=== PATIENT | male | born 1950 | race American Indian/Alaskan Native ===

== ENCOUNTER 2016-11-07 09:46 | Emergency (ER) | payer MEDICARE ==
[2016-11-07 10:35] LABS: Hematocrit 35.2 % (35.5-45.6); Hemoglobin 11.9 gm/dl (11.8-15.2); Mean Corpuscular HGB Conc 34 % (32-34); Mean Corpuscular Hemoglobin 29 pg (28-32); Mean Corpuscular Volume 84 fl (84-94); Platelet Count 279 K/mm3 (140-440); Red Blood Count 4.19 M/mm3 (3.65-5.03); Red Cell Distribution Width 15.7 % (13.2-15.2)
[2016-11-07 10:51] LABS: BUN/Creatinine Ratio 6.87; Calcium 9.3 mg/dL (8.4-10.2); Chloride 103.6 mmol/L (98-107); Magnesium 1.7 mg/dL (1.7-2.3); Potassium 4.1 mmol/L (3.6-5.0)
[2016-11-07] MEDS ORDERED: CATAPRES PO ONE (17:20)
[2016-11-07] MEDS ORDERED: FIORICET PO ONE (17:20)
--- NOTE | 2016-11-07 17:47 | Emergency Department Report ---
HPI - General Chief Complaint: Dizziness Time Seen by Provider: 11/07/16 17:13 - HPI HPI: Room 6 The patient is a 66-year-old male presenting with a chief complaint of headache and dizziness. Patient is currently at [facility] for alcohol abuse. The patient states today and was told by the nurses blood pressure was elevated and sent to the ED for management. The patient states for 1 weeks his had intermittent dizziness and headache. The patient currently denies dizziness but states she has a headache as a score of 10/10. The patient also admits to insomnia for the past 4 nights Location: See above Duration: [see above] Quality: Headache Severity: 10/10 Modifying factors: [see above] Context: [see above] Mode of transportation: [not driving]t ED Past Medical Hx - Past Medical History Hx Hypertension: Yes Additional medical history: ENLARGED PROSTATE. HIGH CHOLESTEROL. ALCOHOL ABUSE - Surgical History Additional Surgical History: COLON POLYPS REMOVED ? - Family History Family history: no significant - Social History Smoking Status: Current Every Day Smoker Substance Use Type: None - Medications Home Medications: Home Medications Medication Instructions Recorded Confirmed Last Taken Type Hydralazine HCl [Apresoline TAB] 50 mg PO Q6H 11/07/16 11/07/16 Unknown History Mirtazapine [Remeron] 15 mg PO QHS 11/07/16 11/07/16 Unknown History Pravastatin Sodium [Pravastatin] 20 mg PO QHS 11/07/16 11/07/16 Unknown History Tamsulosin [Flomax] 0.4 mg PO QDAY 11/07/16 11/07/16 Unknown History amLODIPine [Norvasc] 5 mg PO DAILY #90 tab 11/07/16 Unknown Rx ED Review of Systems ROS: Stated complaint: ELEVATED BP Other details as noted in HPI Comment: All other systems reviewed and negative Constitutional: denies: chills, fever Eyes: denies: eye pain, eye discharge, vision change ENT: denies: ear pain, throat pain Respiratory: denies: cough, shortness of breath, wheezing Cardiovascular: denies: chest pain, palpitations Endocrine: no symptoms reported Gastrointestinal: denies: abdominal pain, nausea, diarrhea Genitourinary: denies: urgency, dysuria Musculoskeletal: denies: back pain, joint swelling, arthralgia Skin: denies: rash, lesions Neurological: headache Psychiatric: denies: anxiety, depression Hematological/Lymphatic: denies: easy bleeding, easy bruising Physical Exam - Physical Exam Vital Signs: Vital Signs 11/07/16 11/07/16 11/07/16 09:53 15:57 16:05 Temperature 98.2 F 97.7 F Pulse Rate 89 86 82 Respiratory 17 18 12 Rate Blood Pressure 159/99 Blood Pressure 180/110 178/102 [Left] O2 Sat by Pulse 100 99 99 Oximetry 11/07/16 16:06 Temperature Pulse Rate Respiratory 12 Rate Blood Pressure Blood Pressure [Left] O2 Sat by Pulse 99 Oximetry Physical Exam: GENERAL: The patient is well-developed well-nourished male lying on stretcher not appearing to be in acute distress. [] HEENT: Normocephalic. Atraumatic. Extraocular motions are intact. Patient has moist mucous membranes. NECK: Supple. No meningitic signs are noted. Trachea midline CHEST/LUNGS: Clear to auscultation. There is no respiratory distress noted. HEART/CARDIOVASCULAR: Regular. There is no tachycardia. There is no gallop rub or murmur. ABDOMEN: Abdomen is soft, nontender. Patient has normal bowel sounds. There is no abdominal distention. SKIN: There is no rash. There is no edema. There is no diaphoresis. NEURO: The patient is awake, alert, and oriented. The patient is cooperative. The patient has no focal neurologic deficits. The patient has normal speech. Cranial nerves II through XII grossly intact, no drift MUSCULOSKELETAL: There is no evidence of acute injury. ED Course Vital Signs 11/07/16 11/07/16 11/07/16 09:53 15:57 16:05 Temperature 98.2 F 97.7 F Pulse Rate 89 86 82 Respiratory 17 18 12 Rate Blood Pressure 159/99 Blood Pressure 180/110 178/102 [Left] O2 Sat by Pulse 100 99 99 Oximetry 11/07/16 16:06 Temperature Pulse Rate Respiratory 12 Rate Blood Pressure Blood Pressure [Left] O2 Sat by Pulse 99 Oximetry ED Medical Decision Making - Lab Data Result diagrams: 11/07/16 10:21 11/07/16 10:21 Laboratory Tests 11/07/16 11/07/16 10:21 10:21 WBC 8.0 RBC 4.19 Hgb 11.9 Hct 35.2 L MCV 84 MCH 29 MCHC 34 RDW 15.7 H Plt Count 279 Sodium 137 Potassium 4.1 Chloride 103.6 Carbon Dioxide 23 Anion Gap 15 BUN 11 Creatinine 1.6 H Estimated GFR 43 BUN/Creatinine Ratio 6.87 Glucose 100 Calcium 9.3 Magnesium 1.7 - Radiology Data Radiology results: report reviewed (CT head), image reviewed (CT head) interpreted by me: CT head (read by radiologist)-acute intracranial abnormality. 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 ED Disposition Clinical Impression: Hypertension, Headache Disposition: DC/TX PSY HOSP/PSY UNIT Is pt being admited?: No Does the pt Need Aspirin: No Condition: Stable Instructions: Hypertension (ED) Additional Instructions: Return to the emergency department immediately should you develop worsening symptoms, fever, inability to tolerate food or liquid or any other concerns. Prescriptions: amLODIPine [Norvasc] 5 mg PO DAILY #90 tab Referrals: PRIMARY CAREMD [Primary Care Provider] - 3-5 Days GLO MARTINEZ MD [Staff Physician] - 3-5 Days Time of Disposition: 19:25
--- NOTE | 2016-11-07 18:25 | Cat Scan Report ---
FINAL REPORT EXAM: CT HEAD/BRAIN WO CON HISTORY: hypertension, headache TECHNIQUE: CT imaging is acquired through the brain without contrast. Transaxial reformations are provided. PRIORS: None. FINDINGS: Ventricles and CSF spaces are proportionately enlarged, consistent with parenchymal atrophy. Scattered deep and subcortical white matter hypodense foci are confluent in some areas and are compatible with microvascular angiopathy. No acute intracranial hemorrhage or mass effect. Calvarium and superficial scalp are intact. No significant abnormality involving the imaged portions of the paranasal sinuses or mastoid air cells. Carotid and vertebral arterial calcifications are noted. IMPRESSION: No acute intracranial abnormality. 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
[2016-11-07 19:31] VITALS: BP 157/100
== END 2016-11-07 19:30 ==
LOC: ED 09:46
DX: I10 Essential (primary) hypertension (principal); R51 Headache; F17.200 Nicotine dependence, unspecified, uncomplicated
CPT/HCPCS: 36415; 70450; 80048; 83735; 85027; 93005; 93010; 99285

== ENCOUNTER 2017-06-19 15:30 | Emergency (ER) | payer MEDICARE ==
[2017-06-19 16:44] VITALS: BP 167/102
[2017-06-19 17:16] LABS: Basophils % (Auto) 1.2 % (0.0-1.8); Eosinophils % (Auto) 1.8 % (0.0-4.3); Hematocrit 35.9 % (35.5-45.6); Hemoglobin 11.9 gm/dl (11.8-15.2); Mean Corpuscular HGB Conc 33 % (32-34); Mean Corpuscular Hemoglobin 27 pg (28-32); Mean Corpuscular Volume 80 fl (84-94); Platelet Count 279 K/mm3 (140-440); Red Blood Count 4.47 M/mm3 (3.65-5.03); Red Cell Distribution Width 14.9 % (13.2-15.2); White Blood Count 9.8 K/mm3 (4.5-11.0)
[2017-06-19 17:31] LABS: Calcium 9.5 mg/dL (8.4-10.2)
[2017-06-19 17:56] LABS: Bilirubin,Urine NEG (Negative); Blood,Urine NEG (Negative); Ketones,Urine NEG (Negative); Leukocyte Esterase,Urine NEG (Negative); Mucus,Urine FEW /HPF; Nitrite,Urine NEG (Negative); Protein,Urine <15 mg/dL mg/dL (Negative); Urobilinogen,Urine < 2.0 mg/dL (<2.0)
--- NOTE | 2017-06-19 21:46 | Emergency Department Report ---
ED Alcohol HPI - General Chief Complaint: Alcohol Stated Complaint: MEDICAL CLEARANCE Time Seen by Provider: 06/19/17 21:36 Source: patient Mode of arrival: Ambulatory Limitations: No Limitations - History of Present Illness Initial Comments: Mr. Wilson is a 67 years old male family today for alcohol detox and rehabilitation. Patient stated that last time he drank was 2 months ago but it' s always on his mind and he is afraid that he might start drinking again. Patient Last alcohol detox was 6 months ago. He stated that he feel depressed but denied any suicidal ideation or homicidal ideation no visual or auditory hallucination. MD Complaint: desires rehab, medical clearance for det Chronic Alcohol Use: Yes Previous Visits for Alcohol Intoxication?: Yes (6 month) Recent Trauma: No Associated Symptoms: depression. denies: nausea, vomiting, syncope, seizure, diaphoresis, tremors, abdominal pain, hematemesis, melena, suicidality - Related Data Home Medications Medication Instructions Recorded Confirmed Last Taken Hydralazine HCl [Apresoline TAB] 50 mg PO Q6H 11/07/16 06/19/17 Unknown Mirtazapine [Remeron] 15 mg PO QHS 11/07/16 06/19/17 Unknown Pravastatin Sodium [Pravastatin] 20 mg PO QHS 11/07/16 06/19/17 Unknown Tamsulosin [Flomax] 0.4 mg PO QDAY 11/07/16 06/19/17 Unknown Previous Rx's Medication Instructions Recorded Last Taken Type amLODIPine [Norvasc] 5 mg PO DAILY #90 tab 11/07/16 Unknown Rx Allergies Allergy/AdvReac Type Severity Reaction Status Date / Time No Known Allergies Allergy Unverified 11/07/16 10:04 ED Review of Systems ROS: Stated complaint: MEDICAL CLEARANCE Other details as noted in HPI Comment: All other systems reviewed and negative Constitutional: denies: chills, fever Respiratory: denies: cough, orthopnea, shortness of breath, SOB with exertion, SOB at rest, wheezing Cardiovascular: denies: chest pain, palpitations, dyspnea on exertion, orthopnea Gastrointestinal: denies: abdominal pain, nausea, vomiting, diarrhea, constipation, hematemesis, melena, hematochezia Musculoskeletal: denies: back pain Skin: denies: rash Neurological: denies: headache, weakness, numbness, paresthesias Psychiatric: depression. denies: auditory hallucinations, visual hallucinations , homicidal thoughts, suicidal thoughts ED Past Medical Hx - Past Medical History Previous Medical History?: Yes Hx Hypertension: Yes Hx Psychiatric Treatment: Yes (ETOH abuse and tx @ [place]) Additional medical history: ENLARGED PROSTATE. HIGH CHOLESTEROL. ALCOHOL ABUSE - Surgical History Past Surgical History?: Yes Additional Surgical History: COLON POLYPS REMOVED , Partial colon removed - Social History Smoking Status: Current Every Day Smoker Substance Use Type: Alcohol, Prescribed - Medications Home Medications: Home Medications Medication Instructions Recorded Confirmed Last Taken Type Hydralazine HCl [Apresoline TAB] 50 mg PO Q6H 11/07/16 06/19/17 Unknown History Mirtazapine [Remeron] 15 mg PO QHS 11/07/16 06/19/17 Unknown History Pravastatin Sodium [Pravastatin] 20 mg PO QHS 11/07/16 06/19/17 Unknown History Tamsulosin [Flomax] 0.4 mg PO QDAY 11/07/16 06/19/17 Unknown History amLODIPine [Norvasc] 5 mg PO DAILY #90 tab 11/07/16 06/19/17 Unknown Rx ED Physical Exam - General Limitations: No Limitations General appearance: alert, in no apparent distress - Head Head exam: Present: atraumatic, normocephalic - Eye Eye exam: Present: normal appearance, PERRL - ENT ENT exam: Present: normal exam, normal orophraynx, mucous membranes moist. Absent: mucous membranes dry - Neck Neck exam: Present: normal inspection. Absent: tenderness, meningismus - Respiratory Respiratory exam: Present: normal lung sounds bilaterally. Absent: respiratory distress, wheezes, rales, rhonchi, accessory muscle use, decreased breath sounds , prolonged expiratory - Cardiovascular Cardiovascular Exam: Present: regular rate, normal rhythm, normal heart sounds - GI/Abdominal GI/Abdominal exam: Present: soft, normal bowel sounds. Absent: distended, tenderness, guarding, rebound, rigid, hyperactive bowel sounds, hypoactive bowel sounds, organomegaly, mass, bruit, pulsatile mass, hernia - Extremities Exam Extremities exam: Present: normal inspection, full ROM - Back Exam Back exam: Present: normal inspection. Absent: tenderness, CVA tenderness (R), CVA tenderness (L) - Neurological Exam Neurological exam: Present: alert, oriented X3, CN II-XII intact, normal gait - Psychiatric Psychiatric exam: Present: depressed. Absent: agitated, anxious, flat affect, manic, homicidal ideation, suicidal ideation - Skin Skin exam: Present: warm, intact, normal color ED Course Vital Signs 06/19/17 16:40 Temperature 98.8 F Pulse Rate 82 Respiratory 18 Rate Blood Pressure 167/102 O2 Sat by Pulse 99 Oximetry ED Medical Decision Making - Lab Data Result diagrams: 06/19/17 16:55 06/19/17 16:55 - Medical Decision Making Patient has been assessed by mental health. They recommend outpatient rehabilitation since patient he just came out of inpatient rehabilitation. Patient agreed to the plan, I will discharge him home. Critical care attestation.: If time is entered above; I have spent that time in minutes in the direct care of this critically ill patient, excluding procedure time. ED Disposition Clinical Impression: Alcohol abuse Disposition: DC-01 TO HOME OR SELFCARE Is pt being admited?: No Condition: Stable Instructions: Abuse of Alcohol (ED) Referrals: PRIMARY CARE, [Primary Care Provider] - 3-5 Days
== END 2017-06-20 00:30 | disposition home or self-care (01) ==
LOC: ED 15:30
DX: F10.129 Alcohol abuse with intoxication, unspecified (principal); I10 Essential (primary) hypertension; F17.200 Nicotine dependence, unspecified, uncomplicated
CPT/HCPCS: 36415; 80048; 81001; 85025; 99284; G0480; 80320

== ENCOUNTER 2017-06-21 21:46 | Emergency (ER) | payer MEDICARE ==
[2017-06-21 22:50] VITALS: BP 157/109
== END 2017-06-22 02:09 | disposition left against medical advice (07) ==
LOC: ED 21:46
DX: Z00.8 Encounter for other general examination (principal); Z53.21 Procedure and treatment not carried out due to patient leaving prior to being seen by health care provider

== ENCOUNTER 2017-06-25 10:36 | Inpatient (IN) | payer MEDICARE ==
--- NOTE | 2017-06-25 10:55 | Emergency Department Report ---
Chief Complaint: Psych Stated Complaint: SUICIDAL Time Seen by Provider: 06/25/17 10:53 - HPI History of Present Illness: 67-year-old male with a history of mental illness presents to the ED complaining wanted to be here anymore. Patient states he does not have a plan but he feels like he might hurt himself. Denies fever, drug use, alcohol use, chest pain, shortness of breath, HI - ROS Review of Systems: As noted in HPI - Exam Vital Signs: Vital Signs 06/25/17 10:41 Temperature 97.5 F L Pulse Rate 101 H Respiratory 16 Rate Blood Pressure 161/105 O2 Sat by Pulse 98 Oximetry Physical Exam: GENERAL: Alert and oriented x3, no apparent distress, Normal Gait, atraumatic. PSYCHIATRIC: Mood is congruent with affect, denies homicidal ideations but admits suicidal ideation with no plans to carry out. SKIN: Warm and dry, No lesions, No ulceration or induration present. MSE screening note: Focused history and physical exam performed. Due to findings the following was ordered: ED Medical Decision Making - Medical Decision Making Mental protocol ordered patient to be seen by the physician ED Disposition for MSE Condition: Stable
[2017-06-25 11:05] LABS: Basophils % (Auto) 1.1 % (0.0-1.8); Eosinophils % (Auto) 1.3 % (0.0-4.3); Hematocrit 38.4 % (35.5-45.6); Hemoglobin 12.9 gm/dl (11.8-15.2); Mean Corpuscular HGB Conc 34 % (32-34); Mean Corpuscular Hemoglobin 27 pg (28-32); Mean Corpuscular Volume 81 fl (84-94); Platelet Count 309 K/mm3 (140-440); Red Blood Count 4.76 M/mm3 (3.65-5.03); Red Cell Distribution Width 14.4 % (13.2-15.2); White Blood Count 9.6 K/mm3 (4.5-11.0)
[2017-06-25 11:20] LABS: Calcium 9.7 mg/dL (8.4-10.2)
[2017-06-25 11:23] LABS: Potassium 5.8 mmol/L (3.6-5.0)
[2017-06-25 11:38] LABS: Urine Drugs of Abuse Note Disclamer
[2017-06-25] MEDS ORDERED: NACL 0.9% 500 ML 500 ML IV ONE (12:13)
[2017-06-25] MEDS ORDERED: KIONEX PO ONE (12:13)
[2017-06-25 12:18] LABS: Bacteria,Urine 1+ /HPF (Negative); Bilirubin,Urine NEG (Negative); Blood,Urine NEG (Negative); Ketones,Urine NEG (Negative); Leukocyte Esterase,Urine NEG (Negative); Nitrite,Urine NEG (Negative)
--- NOTE | 2017-06-25 13:10 | Emergency Department Report ---
HPI - General Chief Complaint: Psych Time Seen by Provider: 06/25/17 10:53 - HPI HPI: This is a 67 year-old male presents to the emergency department with complaint of depression and suicidal ideations. He says he does have a history of major depression. He also has a history of alcohol abuse and previous alcoholism but says that he has not had any alcoholic drink about 6 months after finishing a detox and rehabilitation program in the [place]. He just got back 1 week ago and tried to go into another program at [facility] but was unable to do so and says that his medications for his hypertension, enlarged prostate and hyperlipidemia are currently at [facility]. He denies any chest pain, fever, headache, vision change, shortness of breath. He denies any hallucinations or homicidal ideations. ED Past Medical Hx - Past Medical History Previous Medical History?: Yes Hx Hypertension: Yes Hx Psychiatric Treatment: Yes (ETOH abuse and tx @ [place]) Additional medical history: ENLARGED PROSTATE. HIGH CHOLESTEROL. ALCOHOL ABUSE - Surgical History Past Surgical History?: Yes Additional Surgical History: COLON POLYPS REMOVED , Partial colon removed - Social History Smoking Status: Current Every Day Smoker Substance Use Type: Alcohol - Medications Home Medications: Home Medications Medication Instructions Recorded Confirmed Last Taken Type Hydralazine HCl [Apresoline TAB] 50 mg PO Q6H 11/07/16 06/19/17 Unknown History Mirtazapine [Remeron] 15 mg PO QHS 11/07/16 06/19/17 Unknown History Pravastatin Sodium [Pravastatin] 20 mg PO QHS 11/07/16 06/19/17 Unknown History Tamsulosin [Flomax] 0.4 mg PO QDAY 11/07/16 06/19/17 Unknown History amLODIPine [Norvasc] 5 mg PO DAILY #90 tab 11/07/16 06/19/17 Unknown Rx ED Review of Systems ROS: Stated complaint: SUICIDAL Other details as noted in HPI Comment: All other systems reviewed and negative Constitutional: denies: chills, fever Eyes: denies: eye pain, eye discharge, vision change ENT: denies: ear pain, throat pain Respiratory: denies: cough, shortness of breath, wheezing Cardiovascular: denies: chest pain, palpitations Gastrointestinal: denies: abdominal pain, nausea, diarrhea Genitourinary: denies: urgency, dysuria Musculoskeletal: denies: back pain, joint swelling, arthralgia Skin: denies: rash, lesions Neurological: denies: headache, weakness, paresthesias Psychiatric: suicidal thoughts. denies: auditory hallucinations, visual hallucinations, homicidal thoughts Physical Exam - Physical Exam Vital Signs: Vital Signs 06/25/17 10:41 Temperature 97.5 F L Pulse Rate 101 H Respiratory 16 Rate Blood Pressure 161/105 O2 Sat by Pulse 98 Oximetry Physical Exam: GENERAL: The patient is well-developed well-nourished. HENT: Normocephalic. Atraumatic. Patient has moist mucous membranes. EYES: Extraocular motions are intact. Pupils equal reactive to light bilaterally. NECK: Supple. Trachea is midline. CHEST/LUNGS: Clear to auscultation. There is no respiratory distress noted. HEART/CARDIOVASCULAR: Regular. There is no tachycardia. There is no gallop rub or murmur. ABDOMEN: Abdomen is soft, nontender. Patient has normal bowel sounds. There is no abdominal distention. SKIN: Skin is warm and dry. NEURO: The patient is awake, alert, and oriented. The patient is cooperative. The patient has no focal neurologic deficits. The patient has normal speech. MUSCULOSKELETAL: There is no tenderness or deformity. There is no limitation range of motion. There is no evidence of acute injury. PSYCH: Patient has a flat affect. ED Course Vital Signs 06/25/17 10:41 Temperature 97.5 F L Pulse Rate 101 H Respiratory 16 Rate Blood Pressure 161/105 O2 Sat by Pulse 98 Oximetry ED Medical Decision Making - Lab Data Result diagrams: 06/25/17 10:51 06/25/17 10:51 - Medical Decision Making 67-year-old male presents with the complaint of suicidal ideations and depression. However during his medical clearance workup, the patient was found to have hyponatremia, hyperkalemia and does not appear to be medically clear for psychiatric placement. For this reason he will be admitted to the hospitalist service. He was given some IV fluid replacement and some Kayexalate. He has been accepted for admission by the hospitalist, Dr. Kc. - Differential Diagnosis bipolar disorder, depression, schizoaffective, substance abuse Critical Care Time: No Critical care attestation.: If time is entered above; I have spent that time in minutes in the direct care of this critically ill patient, excluding procedure time. ED Disposition Clinical Impression: Hyponatremia, Hyperkalemia, Suicidal ideations Depression Qualifiers: Depression Type: unspecified Qualified Code(s): F32.9 - Major depressive disorder, single episode, unspecified Disposition: -09 OP ADMIT IP TO THIS HOSP Is pt being admited?: Yes Condition: Stable Referrals: PRIMARY CARE, [Primary Care Provider] - 3-5 Days Time of Disposition: 13:30
[2017-06-25] MEDS: HEPARIN SUB-Q SCH ×2 (14:54→22:04)
[2017-06-25] MEDS ORDERED: NON-FORMULARY (Pravastatin Sodium [Pravastatin] 20 MG) PO SCH (22:00)
[2017-06-25] MEDS: REMERON PO SCH (22:04)
--- NOTE | 2017-06-26 | History and Physical Report ---
<TOBIN VICTOR - Last Filed: 06/26/17 08:08> History of Present Illness Date of admission: 06/25/17 13:31 Medications and Allergies Allergies Allergy/AdvReac Type Severity Reaction Status Date / Time No Known Allergies Allergy Unverified 11/07/16 10:04 Home Medications Medication Instructions Recorded Confirmed Last Taken Type Hydralazine HCl [Apresoline TAB] 50 mg PO Q6H 11/07/16 06/25/17 Unknown History Mirtazapine [Remeron] 15 mg PO QHS 11/07/16 06/25/17 Unknown History Pravastatin Sodium [Pravastatin] 20 mg PO QHS 11/07/16 06/25/17 Unknown History Tamsulosin [Flomax] 0.4 mg PO QDAY 11/07/16 06/25/17 Unknown History amLODIPine [Norvasc] 5 mg PO DAILY #90 tab 11/07/16 06/25/17 Unknown Rx Active Meds: Active Medications Acetaminophen (Tylenol) 650 mg PO Q4H PRN PRN Reason: Pain MILD(1-3)/Fever >100.5/POLO Amlodipine Besylate (Norvasc) 5 mg PO DAILY [facility] Bisacodyl (Dulcolax) 10 mg NC QDAY PRN PRN Reason: [place] [facility] Famotidine (Pepcid) 20 mg IV DAILY [facility] Heparin Sodium (Porcine) (Heparin) 5,000 unit SUB-Q Q8HR [facility] Last Admin: 06/26/17 05:50 Dose: 5,000 unit Hydromorphone HCl (Dilaudid) 0.5 mg IV Q3H PRN PRN Reason: Pain , Severe (7-10) Sodium Chloride (Nacl 0.9% 1000 Ml) 1,000 mls @ 100 mls/hr IV DIRECT [facility]REA Magnesium Hydroxide (Milk Of Magnesia) 30 ml PO Q4H PRN PRN Reason: Constipation Mirtazapine (Remeron) 15 mg PO QHS [facility] Last Admin: 06/25/17 22:04 Dose: 15 mg Miscellaneous Medication (Hydralazine Hcl [Apresoline Tab]) 50 mg PO Q6H [facility] Ondansetron HCl (Zofran) 4 mg IV Q8H PRN PRN Reason: N/V unrelieved by [facility] Oxycodone/Acetaminophen (Percocet 5/325) 1 tab PO Q6H PRN PRN Reason: Pain, Moderate (4-6) Pneumococcal Polyvalent Vaccine (Pneumovax 23) 0.5 ml IM .ONCE ONE Stop: 06/26/17 12:01 Pravastatin Sodium (Pravachol) 20 mg PO QHS [facility] Last Admin: 06/26/17 00:31 Dose: Not Given Tamsulosin HCl (Flomax) 0.4 mg PO QDAY [facility] Zolpidem Tartrate (Ambien) 5 mg PO QHS PRN PRN Reason: Insomnia Exam - Constitutional Vitals: Temp Pulse Resp BP Pulse Ox 98.8 F 87 18 116/80 96 06/26/17 00:02 06/26/17 00:02 06/26/17 00:02 06/26/17 00:02 06/26/17 00:02 Results - Labs CBC & Chem 7: 06/25/17 10:51 06/25/17 10:51 Labs: Laboratory Last Values WBC 9.6 K/mm3 (4.5-11.0) 06/25/17 10:51 RBC 4.76 M/mm3 (3.65-5.03) 06/25/17 10:51 Hgb 12.9 gm/dl (11.8-15.2) 06/25/17 10:51 Hct 38.4 % (35.5-45.6) 06/25/17 10:51 MCV 81 fl (84-94) L 06/25/17 10:51 MCH 27 pg (28-32) L 06/25/17 10:51 MCHC 34 % (32-34) 06/25/17 10:51 RDW 14.4 % (13.2-15.2) 06/25/17 10:51 Plt Count 309 K/mm3 (140-440) 06/25/17 10:51 Lymph % (Auto) 21.7 % (13.4-35.0) 06/25/17 10:51 [place] % (Auto) 10.9 % (0.0-7.3) H 06/25/17 10:51 Eos % (Auto) 1.3 % (0.0-4.3) 06/25/17 10:51 Baso % (Auto) 1.1 % (0.0-1.8) 06/25/17 10:51 Lymph # 2.1 K/mm3 (1.2-5.4) 06/25/17 10:51 [place] # 1.0 K/mm3 (0.0-0.8) H 06/25/17 10:51 Eos # 0.1 K/mm3 (0.0-0.4) 06/25/17 10:51 Baso # 0.1 K/mm3 (0.0-0.1) 06/25/17 10:51 Seg Neutrophils % 65.0 % (40.0-70.0) 06/25/17 10:51 Seg Neutrophils # 6.2 K/mm3 (1.8-7.7) 06/25/17 10:51 Sodium 126 mmol/L (137-145) L 06/25/17 10:51 Potassium 5.8 mmol/L (3.6-5.0) H 06/25/17 10:51 Chloride 84.0 mmol/L (98-107) L 06/25/17 10:51 Carbon Dioxide 24 mmol/L (22-30) 06/25/17 10:51 Anion Gap 24 mmol/L 06/25/17 10:51 BUN 24 mg/dL (9-20) H 06/25/17 10:51 Creatinine 1.6 mg/dL (0.8-1.5) H 06/25/17 10:51 Estimated GFR 52 ml/min 06/25/17 10:51 BUN/Creatinine Ratio 15 % 06/25/17 10:51 Glucose 108 mg/dL (75-100) H 06/25/17 10:51 Calcium 9.7 mg/dL (8.4-10.2) 06/25/17 10:51 Urine Color Yellow (Yellow) 06/25/17 11:02 Urine Turbidity Clear (Clear) 06/25/17 11:02 Urine pH 5.0 (5.0-7.0) 06/25/17 11:02 Ur Specific [place] 1.017 (1.003-1.030) 06/25/17 11:02 Urine Protein 30 mg/dl mg/dL (Negative) 06/25/17 11:02 Urine Glucose (UA) Neg mg/dL (Negative) 06/25/17 11:02 Urine Ketones Neg mg/dL (Negative) 06/25/17 11:02 Urine Blood Neg (Negative) 06/25/17 11:02 Urine Nitrite Neg (Negative) 06/25/17 11:02 Urine Bilirubin Neg (Negative) 06/25/17 11:02 Urine Urobilinogen 2.0 mg/dL (<2.0) 06/25/17 11:02 Ur Leukocyte Esterase Neg (Negative) 06/25/17 11:02 Urine WBC (Auto) 3.0 /HPF (0.0-6.0) 06/25/17 11:02 Urine RBC (Auto) 3.0 /HPF (0.0-6.0) 06/25/17 11:02 Urine Bacteria (Auto) 1+ /HPF (Negative) 06/25/17 11:02 Urine Opiates Screen Presumptive negative 06/25/17 11:02 Urine Methadone Screen Presumptive negative 06/25/17 11:02 Ur Barbiturates Screen Presumptive negative 06/25/17 11:02 Ur Phencyclidine Scrn Presumptive negative 06/25/17 11:02 Ur Amphetamines Screen Presumptive negative 06/25/17 11:02 U Benzodiazepines Scrn Presumptive negative 06/25/17 11:02 Urine Cocaine Screen Presumptive negative 06/25/17 11:02 U Marijuana (THC) Screen Presumptive negative 06/25/17 11:02 Drugs of Abuse Note Disclamer 06/25/17 11:02 Plasma/Serum Alcohol < 0.01 gm% (0-0.07) 06/25/17 10:51 <KJ POOLE S - Last Filed: 06/26/17 08:53> History of Present Illness Date of examination: 06/25/17 Date of admission: 06/25/17 13:31 Chief complaint: CC Suicidal ideation History of present illness: HPI This is a 67 year-old male presents to the emergency department with complaint of depression and suicidal ideations. He says he does have a history of major depression. He also has a history of alcohol abuse and previous alcoholism but says that he has not had any alcoholic drink about 6 months after finishing a detox and rehabilitation program in the [place]. He just got back 1 week ago and tried to go into another program at [facility] but was unable to do so and says that his medications for his hypertension, enlarged prostate and hyperlipidemia are currently at [facility]. He denies any chest pain, fever, headache, vision change, shortness of breath. He denies any hallucinations or homicidal ideations. - Past Medical History Previous Medical History?: Yes Hx Hypertension: Yes Hx Psychiatric Treatment: Yes (ETOH abuse and tx @ [place]) Additional medical history: ENLARGED PROSTATE. HIGH CHOLESTEROL. ALCOHOL ABUSE - Surgical History Past Surgical History?: Yes Additional Surgical History: COLON POLYPS REMOVED , Partial colon removed - Social History Smoking Status: Current Every Day Smoker Substance Use Type: Alcohol - Medications Home Medications: Home Medications Medication Instructions Recorded Confirmed Last Taken Type Hydralazine HCl [Apresoline TAB] 50 mg PO Q6H 11/07/16 06/19/17 Unknown History Mirtazapine [Remeron] 15 mg PO QHS 11/07/16 06/19/17 Unknown History Pravastatin Sodium [Pravastatin] 20 mg PO QHS 11/07/16 06/19/17 Unknown History Tamsulosin [Flomax] 0.4 mg PO QDAY 11/07/16 06/19/17 Unknown History amLODIPine [Norvasc] 5 mg PO DAILY #90 tab 11/07/16 06/19/17 Unknown Rx Review of Systems ROS: Stated complaint: SUICIDAL Other details as noted in HPI Comment: All other systems reviewed and negative Constitutional: denies: chills, fever Eyes: denies: eye pain, eye discharge, vision change ENT: denies: ear pain, throat pain Respiratory: denies: cough, shortness of breath, wheezing Cardiovascular: denies: chest pain, palpitations Gastrointestinal: denies: abdominal pain, nausea, diarrhea Genitourinary: denies: urgency, dysuria Musculoskeletal: denies: back pain, joint swelling, arthralgia Skin: denies: rash, lesions Neurological: denies: headache, weakness, paresthesias Psychiatric: suicidal thoughts. denies: auditory hallucinations, visual hallucinations, homicidal thoughts Medications and Allergies Active Meds: Active Medications Amlodipine Besylate (Norvasc) 5 mg PO DAILY [facility] Heparin Sodium (Porcine) (Heparin) 5,000 unit SUB-Q Q8HR [facility] Last Admin: 06/25/17 22:04 Dose: 5,000 unit Mirtazapine (Remeron) 15 mg PO QHS [facility] Last Admin: 06/25/17 22:04 Dose: 15 mg Pneumococcal Polyvalent Vaccine (Pneumovax 23) 0.5 ml IM .ONCE ONE Stop: 06/26/17 12:01 Pravastatin Sodium (Pravachol) 20 mg PO QHS [facility] Exam - Constitutional Vitals: Temp Pulse Resp BP Pulse Ox 98.6 F 85 20 123/80 98 06/25/17 17:06 06/25/17 17:06 06/25/17 17:06 06/25/17 17:06 06/25/17 17:06 General appearance: Present: no acute distress, well-nourished - EENT Eyes: Present: PERRL ENT: hearing intact, clear oral mucosa - Neck Neck: Present: supple, normal ROM - Respiratory Respiratory effort: normal Respiratory: bilateral: CTA - Cardiovascular Heart rate: 80 Rhythm: regular Heart Sounds: Present: S1 & S2. Absent: rub, click - Extremities Extremities: no ischemia, pulses intact, pulses symmetrical, No edema Peripheral Pulses: within normal limits - Abdominal General gastrointestinal: Present: soft, non-tender, non-distended, normal bowel sounds Male genitourinary: Present: normal - Rectal Rectal Exam: deferred - Integumentary Integumentary: Present: clear, warm, dry - Musculoskeletal Musculoskeletal: gait normal, strength equal bilaterally - Psychiatric Psychiatric: appropriate mood/affect, intact judgment & insight - Neurologic Neurologic: CNII-XII intact, moves all extremities - Allied Health Allied health notes reviewed: nursing, case management Results - Labs CBC & Chem 7: 06/25/17 10:51 06/25/17 10:51 Labs: Laboratory Last Values WBC 9.6 K/mm3 (4.5-11.0) 06/25/17 10:51 RBC 4.76 M/mm3 (3.65-5.03) 06/25/17 10:51 Hgb 12.9 gm/dl (11.8-15.2) 06/25/17 10:51 Hct 38.4 % (35.5-45.6) 06/25/17 10:51 MCV 81 fl (84-94) L 06/25/17 10:51 MCH 27 pg (28-32) L 06/25/17 10:51 MCHC 34 % (32-34) 06/25/17 10:51 RDW 14.4 % (13.2-15.2) 06/25/17 10:51 Plt Count 309 K/mm3 (140-440) 06/25/17 10:51 Lymph % (Auto) 21.7 % (13.4-35.0) 06/25/17 10:51 [place] % (Auto) 10.9 % (0.0-7.3) H 06/25/17 10:51 Eos % (Auto) 1.3 % (0.0-4.3) 06/25/17 10:51 Baso % (Auto) 1.1 % (0.0-1.8) 06/25/17 10:51 Lymph # 2.1 K/mm3 (1.2-5.4) 06/25/17 10:51 [place] # 1.0 K/mm3 (0.0-0.8) H 06/25/17 10:51 Eos # 0.1 K/mm3 (0.0-0.4) 06/25/17 10:51 Baso # 0.1 K/mm3 (0.0-0.1) 06/25/17 10:51 Seg Neutrophils % 65.0 % (40.0-70.0) 06/25/17 10:51 Seg Neutrophils # 6.2 K/mm3 (1.8-7.7) 06/25/17 10:51 Sodium 126 mmol/L (137-145) L 06/25/17 10:51 Potassium 5.8 mmol/L (3.6-5.0) H 06/25/17 10:51 Chloride 84.0 mmol/L (98-107) L 06/25/17 10:51 Carbon Dioxide 24 mmol/L (22-30) 06/25/17 10:51 Anion Gap 24 mmol/L 06/25/17 10:51 BUN 24 mg/dL (9-20) H 06/25/17 10:51 Creatinine 1.6 mg/dL (0.8-1.5) H 06/25/17 10:51 Estimated GFR 52 ml/min 06/25/17 10:51 BUN/Creatinine Ratio 15 % 06/25/17 10:51 Glucose 108 mg/dL (75-100) H 06/25/17 10:51 Calcium 9.7 mg/dL (8.4-10.2) 06/25/17 10:51 Urine Color Yellow (Yellow) 06/25/17 11:02 Urine Turbidity Clear (Clear) 06/25/17 11:02 Urine pH 5.0 (5.0-7.0) 06/25/17 11:02 Ur Specific [place] 1.017 (1.003-1.030) 06/25/17 11:02 Urine Protein 30 mg/dl mg/dL (Negative) 06/25/17 11:02 Urine Glucose (UA) Neg mg/dL (Negative) 06/25/17 11:02 Urine Ketones Neg mg/dL (Negative) 06/25/17 11:02 Urine Blood Neg (Negative) 06/25/17 11:02 Urine Nitrite Neg (Negative) 06/25/17 11:02 Urine Bilirubin Neg (Negative) 06/25/17 11:02 Urine Urobilinogen 2.0 mg/dL (<2.0) 06/25/17 11:02 Ur Leukocyte Esterase Neg (Negative) 06/25/17 11:02 Urine WBC (Auto) 3.0 /HPF (0.0-6.0) 06/25/17 11:02 Urine RBC (Auto) 3.0 /HPF (0.0-6.0) 06/25/17 11:02 Urine Bacteria (Auto) 1+ /HPF (Negative) 06/25/17 11:02 Urine Opiates Screen Presumptive negative 06/25/17 11:02 Urine Methadone Screen Presumptive negative 06/25/17 11:02 Ur Barbiturates Screen Presumptive negative 06/25/17 11:02 Ur Phencyclidine Scrn Presumptive negative 06/25/17 11:02 Ur Amphetamines Screen Presumptive negative 06/25/17 11:02 U Benzodiazepines Scrn Presumptive negative 06/25/17 11:02 Urine Cocaine Screen Presumptive negative 06/25/17 11:02 U Marijuana (THC) Screen Presumptive negative 06/25/17 11:02 Drugs of Abuse Note Disclamer 06/25/17 11:02 Plasma/Serum Alcohol < 0.01 gm% (0-0.07) 06/25/17 10:51 Short CBC 06/25/17 Range/Units 10:51 WBC 9.6 (4.5-11.0) K/mm3 Hgb 12.9 (11.8-15.2) gm/dl Hct 38.4 (35.5-45.6) % Plt Count 309 (140-440) K/mm3 BMP 06/25/17 10:51 Sodium 126 L Potassium 5.8 H Chloride 84.0 L Carbon Dioxide 24 BUN 24 H Creatinine 1.6 H Glucose 108 H Calcium 9.7 Urine 06/25/17 Range/Units 11:02 Urine Color Yellow (Yellow) Urine pH 5.0 (5.0-7.0) Ur Specific [place] 1.017 (1.003-1.030) Urine Protein 30 mg/dl (Negative) mg/dL Urine Glucose (UA) Neg (Negative) mg/dL Assessment and Plan Advance Directives: Yes (full code) VTE prophylaxis?: Chemical Plan of care discussed with patient/family: Yes - Patient Problems (1) Hyperkalemia Current Visit: Yes Status: Acute Plan to address problem: kayexalate given in ER Also calcium gluconate IV (2) Hyponatremia Current Visit: Yes Status: Chronic Plan to address problem: Sec to etoh abuse.IV NS for now Check Lytes and osmolarity (3) Suicidal ideations Current Visit: Yes Status: Acute Plan to address problem: MH consult placed (4) Alcohol abuse Current Visit: No Status: Chronic Plan to address problem: CIWA protocl initiated to prevent DT's (5) Depression Current Visit: Yes Status: Chronic Qualifiers: Depression Type: other depression Major depression recurrence: M Active/ Remission status: A Major depression episode severity: M Psychotic features : P Trimester: T Qualified Code(s): F32.89 - Other specified depressive episodes (6) HTN (hypertension) Current Visit: Yes Status: Chronic Qualifiers: Hypertension type: essential hypertension Qualified Code(s): I10 - Essential (primary) hypertension Plan to address problem: Cont Amlodipine and Hydralazine (7) BPH (benign prostatic hyperplasia) Current Visit: Yes Status: Chronic Qualifiers: Lower urinary tract symptom presence: symptoms present Lower urinary tract symptom detail: urinary hesitancy Qualified Code(s): N40.1 - Benign prostatic hyperplasia with lower urinary tract symptoms; R39.11 - Hesitancy of micturition ; R39.11 - Hesitancy of micturition Plan to address problem: Cont Flomax (8) HLD (hyperlipidemia) Current Visit: Yes Status: Chronic Qualifiers: Hyperlipidemia type: mixed hyperlipidemia Qualified Code(s): E78.2 - Mixed hyperlipidemia Plan to address problem: Cont pravastatin (9) DVT prophylaxis Current Visit: Yes Status: Acute Plan to address problem: On Lovenox
[2017-06-26] MEDS: PRAVACHOL PO SCH ×2 (00:31→22:49)
[2017-06-26] MEDS ORDERED: MILK OF MAGNESIA PO PRN (01:27)
[2017-06-26] MEDS ORDERED: AMBIEN PO PRN (01:27)
[2017-06-26] MEDS ORDERED: TYLENOL PO PRN (01:27)
[2017-06-26] MEDS ORDERED: PERCOCET 5/325 PO PRN (01:27)
[2017-06-26] MEDS ORDERED: ZOFRAN IV PRN (01:27)
[2017-06-26] MEDS ORDERED: DULCOLAX PR PRN (01:27)
[2017-06-26] MEDS ORDERED: NACL 0.9% 1000 ML 1,000 ML IV SCH (02:00)
[2017-06-26] MEDS: HEPARIN SUB-Q SCH ×3 (05:50→22:50)
--- NOTE | 2017-06-26 08:00 | Progress Note ---
Assessment and Plan Assessment and plan: Assessment and plan: --Suicidal ideation; 1013 status, psych evaluation, supportive care --Hyponatremia; managed with normal saline, mild improvement , closely monitor sodium levels Consider nephrology evaluation if no improvement --Hyperkalemia; treated, we'll check potassium levels today --Acute renal failure; vasomotor nephropathy, gentle IV hydration, monitor renal function, avoid nephrotoxic medications --Hypertension: Resume home antihypertensive, closely monitor --DVT prophylaxis; Lovenox renal dose Disposition; possible transfer to inpatient psych when medically stable pending psych evaluation Continue 1013 status History Interval history: Patient admitted with suicidal ideation, hyponatremia, hyperkalemia, 1013 status Sincerely slightly better, complains of depression and suicidal thoughts Hospitalist Physical - Constitutional Vitals: Temp Pulse Resp BP Pulse Ox 98.8 F 87 18 116/80 96 06/26/17 00:02 06/26/17 00:02 06/26/17 00:02 06/26/17 00:02 06/26/17 00:02 General appearance: Present: no acute distress, well-nourished - EENT Eyes: Present: PERRL, EOM intact - Neck Neck: Present: supple, normal ROM - Respiratory Respiratory effort: normal Respiratory: negative: rales, rhonchi, wheezing - Cardiovascular Rhythm: regular Heart Sounds: Present: S1 & S2 - Extremities Extremities: no ischemia, No edema - Abdominal General gastrointestinal: soft, non-tender, non-distended, normal bowel sounds - Integumentary Integumentary: Present: clear, warm - Psychiatric Psychiatric: appropriate mood/affect, depressed - Neurologic Neurologic: CNII-XII intact, moves all extremities Results - Labs CBC & Chem 7: 06/25/17 10:51 06/26/17 10:39 Labs: Laboratory Last Values WBC 9.6 K/mm3 (4.5-11.0) 06/25/17 10:51 RBC 4.76 M/mm3 (3.65-5.03) 06/25/17 10:51 Hgb 12.9 gm/dl (11.8-15.2) 06/25/17 10:51 Hct 38.4 % (35.5-45.6) 06/25/17 10:51 MCV 81 fl (84-94) L 06/25/17 10:51 MCH 27 pg (28-32) L 06/25/17 10:51 MCHC 34 % (32-34) 06/25/17 10:51 RDW 14.4 % (13.2-15.2) 06/25/17 10:51 Plt Count 309 K/mm3 (140-440) 06/25/17 10:51 Lymph % (Auto) 21.7 % (13.4-35.0) 06/25/17 10:51 [place] % (Auto) 10.9 % (0.0-7.3) H 06/25/17 10:51 Eos % (Auto) 1.3 % (0.0-4.3) 06/25/17 10:51 Baso % (Auto) 1.1 % (0.0-1.8) 06/25/17 10:51 Lymph # 2.1 K/mm3 (1.2-5.4) 06/25/17 10:51 [place] # 1.0 K/mm3 (0.0-0.8) H 06/25/17 10:51 Eos # 0.1 K/mm3 (0.0-0.4) 06/25/17 10:51 Baso # 0.1 K/mm3 (0.0-0.1) 06/25/17 10:51 Seg Neutrophils % 65.0 % (40.0-70.0) 06/25/17 10:51 Seg Neutrophils # 6.2 K/mm3 (1.8-7.7) 06/25/17 10:51 Sodium 126 mmol/L (137-145) L 06/25/17 10:51 Potassium 5.8 mmol/L (3.6-5.0) H 06/25/17 10:51 Chloride 84.0 mmol/L (98-107) L 06/25/17 10:51 Carbon Dioxide 24 mmol/L (22-30) 06/25/17 10:51 Anion Gap 24 mmol/L 06/25/17 10:51 BUN 24 mg/dL (9-20) H 06/25/17 10:51 Creatinine 1.6 mg/dL (0.8-1.5) H 06/25/17 10:51 Estimated GFR 52 ml/min 06/25/17 10:51 BUN/Creatinine Ratio 15 % 06/25/17 10:51 Glucose 108 mg/dL (75-100) H 06/25/17 10:51 Calcium 9.7 mg/dL (8.4-10.2) 06/25/17 10:51 Urine Color Yellow (Yellow) 06/25/17 11:02 Urine Turbidity Clear (Clear) 06/25/17 11:02 Urine pH 5.0 (5.0-7.0) 06/25/17 11:02 Ur Specific [place] 1.017 (1.003-1.030) 06/25/17 11:02 Urine Protein 30 mg/dl mg/dL (Negative) 06/25/17 11:02 Urine Glucose (UA) Neg mg/dL (Negative) 06/25/17 11:02 Urine Ketones Neg mg/dL (Negative) 06/25/17 11:02 Urine Blood Neg (Negative) 06/25/17 11:02 Urine Nitrite Neg (Negative) 06/25/17 11:02 Urine Bilirubin Neg (Negative) 06/25/17 11:02 Urine Urobilinogen 2.0 mg/dL (<2.0) 06/25/17 11:02 Ur Leukocyte Esterase Neg (Negative) 06/25/17 11:02 Urine WBC (Auto) 3.0 /HPF (0.0-6.0) 06/25/17 11:02 Urine RBC (Auto) 3.0 /HPF (0.0-6.0) 06/25/17 11:02 Urine Bacteria (Auto) 1+ /HPF (Negative) 06/25/17 11:02 Urine Opiates Screen Presumptive negative 06/25/17 11:02 Urine Methadone Screen Presumptive negative 06/25/17 11:02 Ur Barbiturates Screen Presumptive negative 06/25/17 11:02 Ur Phencyclidine Scrn Presumptive negative 06/25/17 11:02 Ur Amphetamines Screen Presumptive negative 06/25/17 11:02 U Benzodiazepines Scrn Presumptive negative 06/25/17 11:02 Urine Cocaine Screen Presumptive negative 06/25/17 11:02 U Marijuana (THC) Screen Presumptive negative 06/25/17 11:02 Drugs of Abuse Note Disclamer 06/25/17 11:02 Plasma/Serum Alcohol < 0.01 gm% (0-0.07) 06/25/17 10:51
[2017-06-26] MEDS ORDERED: NON-FORMULARY (Hydralazine Hcl [Apresoline Tab] 50 MG) PO SCH (08:15)
[2017-06-26 08:58] LABS: Anion Gap 18 mmol/L; BUN/Creatinine Ratio 18; Blood Urea Nitrogen 25 mg/dL (9-20); Calcium 8.9 mg/dL (8.4-10.2); Carbon Dioxide 26 mmol/L (22-30); Chloride 91.7 mmol/L (98-107); Glucose 120 mg/dL (75-100); Potassium 3.8 mmol/L (3.6-5.0); Sodium 132 mmol/L (137-145)
[2017-06-26] MEDS: NORVASC PO SCH (09:01)
[2017-06-26] MEDS: FLOMAX PO SCH (09:02)
[2017-06-26] MEDS ORDERED: PEPCID IV SCH ×2 (10:00)
[2017-06-26 11:32] LABS: Chloride 92.6 mmol/L (98-107); Potassium 3.6 mmol/L (3.6-5.0)
[2017-06-26] MEDS ORDERED: PNEUMOVAX 23 IM ONE (12:00)
[2017-06-26] MEDS: APRESOLINE PO SCH ×3 (13:47→23:58)
[2017-06-26] MEDS: PEPCID PO SCH (22:48)
[2017-06-26] MEDS: REMERON PO SCH (22:48)
[2017-06-27] MEDS: HEPARIN SUB-Q SCH ×3 (06:15→22:47)
[2017-06-27] MEDS: APRESOLINE PO SCH ×3 (06:16→17:05)
[2017-06-27 06:51] LABS: Basophils % (Auto) 1.9 % (0.0-1.8); Eosinophils % (Auto) 2.4 % (0.0-4.3); Hematocrit 33.7 % (35.5-45.6); Hemoglobin 11.2 gm/dl (11.8-15.2); Mean Corpuscular HGB Conc 33 % (32-34); Mean Corpuscular Hemoglobin 27 pg (28-32); Mean Corpuscular Volume 80 fl (84-94); Platelet Count 265 K/mm3 (140-440); Red Cell Distribution Width 14.3 % (13.2-15.2); White Blood Count 8.1 K/mm3 (4.5-11.0)
[2017-06-27 07:18] LABS: Albumin 3.9 g/dL (3.9-5); Albumin/Globulin Ratio 1.4 %; Bilirubin,Total 0.3 mg/dL (0.1-1.2); Chloride 96.9 mmol/L (98-107); Potassium 3.7 mmol/L (3.6-5.0); Total Protein 6.6 g/dL (6.3-8.2)
[2017-06-27] MEDS: NORVASC PO SCH (09:52)
[2017-06-27] MEDS: PEPCID PO SCH ×2 (09:53→22:45)
[2017-06-27] MEDS: FLOMAX PO SCH (09:53)
--- NOTE | 2017-06-27 14:52 | Progress Note ---
Assessment and Plan /Suicidal ideation; - cont 1013 status, psych evaluation pending, supportive care /Hyponatremia; managed with normal saline, mild improvement , closely monitor sodium levels /Hyperkalemia; treated, we'll check potassium levels today /Acute renal failure; vasomotor nephropathy, gentle IV hydration, monitor renal function, avoid nephrotoxic medications /Hypertension: Resume home antihypertensive, closely monitor /DVT prophylaxis; Lovenox renal dose Disposition: pending psych evaluation Continue 1013 status medically stable for discharge Hospitalist Physical General appearance: Present: no acute distress, well-nourished - EENT Eyes: Present: PERRL, EOM intact - Neck Neck: Present: supple, normal ROM - Respiratory Respiratory effort: normal Respiratory: negative: rales, rhonchi, wheezing - Cardiovascular Rhythm: regular Heart Sounds: Present: S1 & S2 - Extremities Extremities: no ischemia, No edema - Abdominal General gastrointestinal: soft, non-tender, non-distended, normal bowel sounds - Integumentary Integumentary: Present: clear, warm - Psychiatric Psychiatric: appropriate mood/affect, depressed - Neurologic Neurologic: CNII-XII intact, moves all extremities Subjective Date of service: 06/27/17 Interval history: Patient seen and examined clinically improved, complains of depression and suicidal thoughts Objective - Constitutional Vitals: Vital Signs - 12hr 06/27/17 06/27/17 06/27/17 06:16 08:20 09:52 Temperature 98.6 F Pulse Rate 80 98 H 98 H Respiratory 20 Rate Blood Pressure 120/70 114/67 126/79 O2 Sat by Pulse 99 Oximetry - Labs CBC & Chem 7: 06/27/17 06:21 06/27/17 06:21 Labs: Abnormal lab results 06/27/17 06/27/17 Range/Units 06:21 06:21 Hgb 11.2 L (11.8-15.2) gm/dl Hct 33.7 L (35.5-45.6) % MCV 80 L (84-94) fl MCH 27 L (28-32) pg Lymph % (Auto) 36.6 H (13.4-35.0) % [place] % (Auto) 11.3 H (0.0-7.3) % Baso % (Auto) 1.9 H (0.0-1.8) % [place] # 0.9 H (0.0-0.8) K/mm3 Baso # 0.2 H (0.0-0.1) K/mm3 Sodium 136 L (137-145) mmol/L Chloride 96.9 L (98-107) mmol/L BUN 25 H (9-20) mg/dL
[2017-06-27] MEDS: REMERON PO SCH (22:45)
[2017-06-27] MEDS: PRAVACHOL PO SCH (22:46)
[2017-06-28] MEDS: APRESOLINE PO SCH ×3 (01:04→12:12)
[2017-06-28] MEDS: HEPARIN SUB-Q SCH (06:17)
[2017-06-28] MEDS ORDERED: NACL ONE (09:42)
[2017-06-28] MEDS: PEPCID PO SCH (09:49)
[2017-06-28] MEDS: DILAUDID IV PRN ×2 (09:49→13:13)
[2017-06-28] MEDS: NORVASC PO SCH (09:49)
[2017-06-28 09:52] VITALS: BP 148/74
--- NOTE | 2017-06-28 12:04 | Discharge Summary ---
Providers - Providers Date of Admission: 06/25/17 13:31 Date of discharge: 06/28/17 Attending physician: ROSANA PHELPS 06/26/17 08:54 Consult to Mental Health [CONS] Routine Reason For Exam: Suicidal ideation Place consult to:: freddie Notified:: angelina Phone number called:: [phone] Was contact made?: Yes If yes, spoke with:: jett Time called:: 10:21 Primary care physician: CROSSING FLAGMAN Hospitalization Condition: Stable Hospital course: This is a 67 year-old male presents to the emergency department with complaint of depression and suicidal ideations. He says he does have a history of major depression. He also has a history of alcohol abuse and previous alcoholism but says that he has not had any alcoholic drink about 6 months after finishing a detox and rehabilitation program in the [place]. He just got back 1 week ago and tried to go into another program at [facility] but was unable to do so and says that his medications for his hypertension, enlarged prostate and hyperlipidemia are currently at [facility]. He denies any chest pain, fever, headache, vision change, shortness of breath. He denies any hallucinations or homicidal ideations. Discharge diagnosis and management: /Suicidal ideation; - cont 1013 status, psych evaluation pending, supportive care /Hyponatremia; managed with normal saline, mild improvement , closely monitor sodium levels /Hyperkalemia; treated, we'll check potassium levels today /Acute renal failure; vasomotor nephropathy, gentle IV hydration, monitor renal function, avoid nephrotoxic medications /Hypertension: Resume home antihypertensive, closely monitor /DVT prophylaxis; Lovenox renal dose Disposition: DC/TX-65 PSY HOSP/PSY UNIT Time spent for discharge: 32 minutes Core Measure Documentation - Palliative Care Palliative Care/ Comfort Measures: Not Applicable - Core Measures Any of the following diagnoses?: none Exam - Constitutional Vitals: Temp Pulse Resp BP Pulse Ox 98.4 F 78 18 148/74 100 06/28/17 08:23 06/28/17 09:49 06/28/17 08:23 06/28/17 09:49 06/28/17 08:23 General appearance: Present: no acute distress, well-nourished - EENT Eyes: Present: PERRL ENT: hearing intact, clear oral mucosa - Neck Neck: Present: supple, normal ROM - Respiratory Respiratory effort: normal Respiratory: bilateral: CTA - Cardiovascular Heart Sounds: Present: S1 & S2. Absent: rub, click - Extremities Extremities: pulses symmetrical, No edema Peripheral Pulses: within normal limits - Abdominal General gastrointestinal: Present: soft, non-tender, non-distended, normal bowel sounds Male genitourinary: Present: normal - Integumentary Integumentary: Present: clear, warm, dry - Musculoskeletal Musculoskeletal: gait normal, strength equal bilaterally - Psychiatric Psychiatric: cooperative - Neurologic Neurologic: CNII-XII intact, moves all extremities Plan Activity: advance as tolerated Weight Bearing Status: Weight Bear as Tolerated Diet: low fat, low salt Follow up with: PRIMARY CARE, [Primary Care Provider] - 3-5 Days Prescriptions: Mirtazapine [Remeron] 15 mg PO QHS #30 tablet Pravastatin [Pravachol] 20 mg PO QHS #30 tablet amLODIPine [Norvasc] 5 mg PO DAILY #90 tab Famotidine [Pepcid] 20 mg PO BID #60 tablet hydrALAZINE [Apresoline TAB] 50 mg PO Q6HR #90 tablet Tamsulosin [Flomax] 0.4 mg PO QDAY #30 capsule
--- NOTE | 2017-06-28 16:44 | Consultation ---
History of Present Illness - Reason for Consult Consult date: 06/28/17 Reason for consult: Mental Health Evaluation Requesting physician: JUAN LUIS SMITH - Chief Complaint Chief complaint: "I don't know where to start" - History of Present Psychiatric Illness This is a 67 year-old male presents to the emergency department with complaint of depression and suicidal ideations. Today patient is calm and cooperative during the assessment. He stated that he don't know what to do with his life because he is homeless. He stated having an hx of alcohol abuse, but been sober for several months. He stated that he is afraid he may relapsed and start drinking again if he cannot get adequate detention. He stated that his SI's has been active for several days since he returned from [place] from a rehab service for alcohol addiction. He stated that he returned to [place] without a place to stay. He stated that he started drinking alcohol over 30 years ago for recreational use, but started drinking more frequent after dealing with life stressors. He stated that he feels sad and worthless and want help for his depression. He rate his depression 8/10, with 10 being the worse. He denies HI's and AVH's. He denies sleep disturbance and a poor appetite. He denies recreational drug use. Medications and Allergies Allergies Allergy/AdvReac Type Severity Reaction Status Date / Time No Known Allergies Allergy Unverified 11/07/16 10:04 Home Medications Medication Instructions Recorded Confirmed Last Taken Type Hydralazine HCl [Apresoline TAB] 50 mg PO Q6H 11/07/16 06/25/17 Unknown History Pravastatin Sodium [Pravastatin] 20 mg PO QHS 11/07/16 06/25/17 Unknown History Famotidine [Pepcid] 20 mg PO BID #60 tablet 06/28/17 Unknown Rx Mirtazapine [Remeron] 15 mg PO QHS #30 tablet 06/28/17 Unknown Rx Pravastatin [Pravachol] 20 mg PO QHS #30 tablet 06/28/17 Unknown Rx Tamsulosin [Flomax] 0.4 mg PO QDAY #30 capsule 06/28/17 Unknown Rx amLODIPine [Norvasc] 5 mg PO DAILY #90 tab 06/28/17 Unknown Rx hydrALAZINE [Apresoline TAB] 50 mg PO Q6HR #90 tablet 06/28/17 Unknown Rx Active Meds: Active Medications Acetaminophen (Tylenol) 650 mg PO Q4H PRN PRN Reason: Pain MILD(1-3)/Fever >100.5/POLO Amlodipine Besylate (Norvasc) 5 mg PO DAILY [facility] Last Admin: 06/28/17 09:49 Dose: 5 mg Bisacodyl (Dulcolax) 10 mg FL QDAY PRN PRN Reason: Constipation unrelieved by MOM Famotidine (Pepcid) 20 mg PO BID [facility] Last Admin: 06/28/17 09:49 Dose: 20 mg Heparin Sodium (Porcine) (Heparin) 5,000 unit SUB-Q Q8HR [facility] Last Admin: 06/28/17 06:17 Dose: 5,000 unit Hydralazine HCl (Apresoline) 50 mg PO Q6HR [facility] Last Admin: 06/28/17 12:12 Dose: 50 mg Hydromorphone HCl (Dilaudid) 0.5 mg IV Q3H PRN PRN Reason: Pain , Severe (7-10) Last Admin: 06/28/17 13:13 Dose: 0.5 mg Sodium Chloride (Nacl 0.9% 1000 Ml) 1,000 mls @ 100 mls/hr IV DIRECT [facility] Magnesium Hydroxide (Milk Of Magnesia) 30 ml PO Q4H PRN PRN Reason: Constipation Mirtazapine (Remeron) 15 mg PO QHS [facility] Last Admin: 06/27/17 22:45 Dose: 15 mg Ondansetron HCl (Zofran) 4 mg IV Q8H PRN PRN Reason: N/V unrelieved by Reglan Last Admin: 06/28/17 09:49 Dose: 4 mg Oxycodone/Acetaminophen (Percocet 5/325) 1 tab PO Q6H PRN PRN Reason: Pain, Moderate (4-6) Last Admin: 06/27/17 22:45 Dose: 1 tab Pravastatin Sodium (Pravachol) 20 mg PO QHS [facility] Last Admin: 06/27/17 22:46 Dose: 20 mg Tamsulosin HCl (Flomax) 0.4 mg PO QDAY [facility] Last Admin: 06/27/17 09:53 Dose: 0.4 mg Zolpidem Tartrate (Ambien) 5 mg PO QHS PRN PRN Reason: Insomnia Past psychiatric history - Past Medical History Past Medical History: hypertension, other (Enlarged Prostate) Past Surgical History: No surgical history - past Psychiatric treatment and history Psych: Depression psychiatric treatment history: Outpatient rehab services in the past. - Social History Social history: Lives alone Mental Status Exam - Vital signs Last Vital Signs Temp 98.4 F 06/28/17 08:23 Pulse 72 06/28/17 12:12 Resp 18 06/28/17 08:23 BP 148/74 06/28/17 09:49 Pulse Ox 100 06/28/17 08:23 - Exam Narrative exam: MSE: Appearance: calm, cooperative Behavior: regular eye contact Speech: regular rate and tone Mood: "depressed" Affect: flat Thought Process: circumstantial Thought Content: denies HI's and AVH's Motor Activity: lying in bed Cognition: A/Ox 3 Insight: variable Judgment: variable Results Result Diagrams: 06/27/17 06:21 06/27/17 06:21 All other labs normal. Assessment and Plan Assessment and plan: Impression: MDD. Today patient is calm and cooperative during the assessment. Patient endorses SI's. DDx: R/O Bipolar, Adjustment DO Recommendation/Plan: Continue 1013 with placement to [facility] today. Continue Remeron 15 mg PO HS for depression. Discussed possible suicidality/ medication induced derrick with patient reference Remeron.
== END 2017-06-28 14:00 | DRG 640 ==
LOC: EEVIPCON 10:36 → ED 10:36 → 3A 13:31
PROVIDERS: ADMIT Internal Medicine; ATTEND Internal Medicine
PROC: 3E0234Z Introduction of Serum, Toxoid and Vaccine into Muscle, Percutaneous Approach (ICD-10-PCS; principal; 2017-06-26)
DX: E87.1 Hypo-osmolality and hyponatremia (principal); N17.0 Acute kidney failure with tubular necrosis; R45.851 Suicidal ideations; F32.9 Major depressive disorder, single episode, unspecified; E87.5 Hyperkalemia; I10 Essential (primary) hypertension; N40.0 Benign prostatic hyperplasia without lower urinary tract symptoms; E78.5 Hyperlipidemia, unspecified; Z23 Encounter for immunization; F10.20 Alcohol dependence, uncomplicated; F17.210 Nicotine dependence, cigarettes, uncomplicated; Z86.010 Personal history of colon polyps; E78.00 Pure hypercholesterolemia, unspecified; Z79.899 Other long term (current) drug therapy
CPT/HCPCS: 36415; 80048; 80051; 80053; 80307; 80320; 81001; 83735; 83930; 83935; 85025; 90732; 99285; 99406; G0480; J1170; J1644; J2405; J7040

== ENCOUNTER 2017-09-14 21:42 | Emergency (ER) | payer MEDICARE ==
[2017-09-14] MEDS ORDERED: ASPIRIN PO ONE (22:11)
[2017-09-14] MEDS ORDERED: APRESOLINE ONE (22:16)
[2017-09-14] MEDS ORDERED: NORVASC ONE (22:17)
[2017-09-14] MEDS ORDERED: TYLENOL ONE (22:17)
[2017-09-14] MEDS ORDERED: NORVASC PO ONE (22:21)
[2017-09-14] MEDS ORDERED: TYLENOL PO ONE (22:21)
[2017-09-14] MEDS ORDERED: APRESOLINE PO ONE (22:21)
[2017-09-14 22:42] LABS: Basophils # (Auto) 0.1 K/mm3 (0.0-0.1); Basophils % (Auto) 0.8 % (0.0-1.8); Eosinophils # (Auto) 0.1 K/mm3 (0.0-0.4); Eosinophils % (Auto) 1.1 % (0.0-4.3); Hematocrit 36.8 % (35.5-45.6); Hemoglobin 12.4 gm/dl (11.8-15.2); Lymphocytes # (Auto) 2.3 K/mm3 (1.2-5.4); Mean Corpuscular HGB Conc 34 % (32-34); Mean Corpuscular Hemoglobin 27 pg (28-32); Mean Corpuscular Volume 80 fl (84-94); Monocytes % (Auto) 8.8 % (0.0-7.3); Platelet Count 240 K/mm3 (140-440); Red Cell Distribution Width 14.5 % (13.2-15.2)
[2017-09-14 23:41] LABS: BUN/Creatinine Ratio 11; Blood Urea Nitrogen 14 mg/dL (9-20); Calcium 9.1 mg/dL (8.4-10.2); Hemolysis Index 11
[2017-09-15] MEDS ORDERED: CATAPRES PO ONE (08:35)
[2017-09-15] MEDS ORDERED: NORCO 5/325 PO ONE (08:39)
--- NOTE | 2017-09-15 09:00 | Emergency Department Report ---
ED General Adult HPI - General Chief complaint: High BP Stated complaint: HEADACHE,ELEVATED HIGH BLOOD PRESSURE Time Seen by Provider: 09/15/17 08:25 Source: patient Mode of arrival: Ambulatory Limitations: No Limitations - History of Present Illness Initial comments: Patient with a history of hypertension presents to the emergency department for evaluation of headache and multiple other complaints. He states he had minimal amount of chest pain but was not persistent. He states he is aching all over. He denies any difficulty in speech gait motor or sensory function. His headache is mild and diffuse currently but still persistent. He is out of his blood pressure medicine for several days. He also mentions some right lower quadrant pain in triage that is not complaining of any abdominal pain now. His chief complaint is headache. Whenever abdominal pain he had earlier has resolved. -: Gradual, days(s) Location: head, abdomen Severity scale (0 -10): 4 Quality: aching Consistency: intermittent Improves with: none Worsens with: none Associated Symptoms: denies other symptoms Treatments Prior to Arrival: none - Related Data Previous Rx's Medication Instructions Recorded Last Taken Type Famotidine [Pepcid] 20 mg PO BID #60 tablet 06/28/17 Unknown Rx Mirtazapine [Remeron] 15 mg PO QHS #30 tablet 06/28/17 Unknown Rx Pravastatin [Pravachol] 20 mg PO QHS #30 tablet 06/28/17 Unknown Rx Tamsulosin [Flomax] 0.4 mg PO QDAY #30 capsule 06/28/17 Unknown Rx amLODIPine [Norvasc] 5 mg PO DAILY #90 tab 06/28/17 Unknown Rx hydrALAZINE [Apresoline TAB] 50 mg PO Q6HR #90 tablet 06/28/17 Unknown Rx Hydralazine HCl 50 mg PO BID #60 tablet 09/15/17 Unknown Rx amLODIPine [Norvasc] 5 mg PO DAILY #30 tab 09/15/17 Unknown Rx Allergies Allergy/AdvReac Type Severity Reaction Status Date / Time No Known Allergies Allergy Unverified 11/07/16 10:04 ED Review of Systems ROS: Stated complaint: HEADACHE,ELEVATED HIGH BLOOD PRESSURE Other details as noted in HPI Constitutional: denies: chills, fever Eyes: denies: eye pain, eye discharge, vision change ENT: denies: ear pain, throat pain Respiratory: denies: cough, shortness of breath, wheezing Cardiovascular: denies: chest pain, palpitations Endocrine: no symptoms reported Gastrointestinal: abdominal pain. denies: nausea, diarrhea Genitourinary: denies: urgency, dysuria Musculoskeletal: denies: back pain, joint swelling, arthralgia Skin: denies: rash, lesions Neurological: headache. denies: weakness, numbness, paresthesias, confusion, abnormal gait, vertigo Psychiatric: denies: anxiety, depression Hematological/Lymphatic: denies: easy bleeding, easy bruising ED Past Medical Hx - Past Medical History Hx Hypertension: Yes Hx Psychiatric Treatment: Yes (ETOH abuse and tx @ [place], MAJOR DEPRESSION) Additional medical history: ENLARGED PROSTATE. HIGH CHOLESTEROL. ALCOHOL ABUSE ( LAST DRANK 10/18/2016) - Surgical History Additional Surgical History: COLON POLYPS REMOVED , Partial colon removed - Social History Smoking Status: Current Every Day Smoker Substance Use Type: None - Medications Home Medications: Home Medications Medication Instructions Recorded Confirmed Last Taken Type Famotidine [Pepcid] 20 mg PO BID #60 tablet 06/28/17 09/14/17 Unknown Rx Mirtazapine [Remeron] 15 mg PO QHS #30 tablet 06/28/17 09/14/17 Unknown Rx Pravastatin [Pravachol] 20 mg PO QHS #30 tablet 06/28/17 09/14/17 Unknown Rx Tamsulosin [Flomax] 0.4 mg PO QDAY #30 capsule 06/28/17 09/14/17 Unknown Rx amLODIPine [Norvasc] 5 mg PO DAILY #90 tab 06/28/17 09/14/17 Unknown Rx hydrALAZINE [Apresoline TAB] 50 mg PO Q6HR #90 tablet 06/28/17 09/14/17 Unknown Rx Hydralazine HCl 50 mg PO BID #60 tablet 09/15/17 Unknown Rx amLODIPine [Norvasc] 5 mg PO DAILY #30 tab 09/15/17 Unknown Rx ED Physical Exam - General Limitations: No Limitations General appearance: alert, in no apparent distress - Head Head exam: Present: atraumatic, normocephalic - Eye Eye exam: Present: normal appearance, PERRL, EOMI. Absent: scleral icterus - ENT ENT exam: Present: mucous membranes moist - Neck Neck exam: Present: normal inspection - Respiratory Respiratory exam: Present: normal lung sounds bilaterally. Absent: respiratory distress - Cardiovascular Cardiovascular Exam: Present: regular rate, normal rhythm. Absent: systolic murmur, diastolic murmur, rubs, gallop - GI/Abdominal GI/Abdominal exam: Present: soft, normal bowel sounds. Absent: distended, tenderness, guarding, rebound, rigid - Rectal Rectal exam: Present: deferred - Extremities Exam Extremities exam: Present: normal inspection - Back Exam Back exam: Present: normal inspection - Neurological Exam Neurological exam: Present: alert, oriented X3, CN II-XII intact. Absent: motor sensory deficit - Psychiatric Psychiatric exam: Present: normal mood, flat affect - Skin Skin exam: Present: warm, dry, intact, normal color. Absent: rash ED Course Vital Signs 09/14/17 09/14/17 09/14/17 22:04 22:22 22:23 Temperature 98.5 F Pulse Rate 101 H 101 H Respiratory 18 18 Rate Blood Pressure 182/112 182/112 O2 Sat by Pulse 98 Oximetry - Reevaluation(s) Reevaluation #1: Headache is improved. Patient admits noncompliance with his blood pressure medicine. He states he does have a primary care physician. His blood pressure has returned to a level appropriate for outpatient management. 09/15/17 09:52 09/15/17 09:53 ED Medical Decision Making - Lab Data Result diagrams: 09/14/17 22:14 09/14/17 22:14 Laboratory Results - last 24 hr 09/14/17 09/14/17 09/15/17 22:14 22:14 01:50 WBC 11.5 H RBC 4.60 Hgb 12.4 Hct 36.8 MCV 80 L MCH 27 L MCHC 34 RDW 14.5 Plt Count 240 Lymph % (Auto) 20.0 [place] % (Auto) 8.8 H Eos % (Auto) 1.1 Baso % (Auto) 0.8 Lymph # 2.3 [place] # 1.0 H Eos # 0.1 Baso # 0.1 Seg Neutrophils % 69.3 Seg Neutrophils # 8.0 H Sodium 131 L Potassium 4.0 Chloride 92.0 L Carbon Dioxide 22 Anion Gap 21 BUN 14 Creatinine 1.3 Estimated GFR > 60 BUN/Creatinine Ratio 11 Glucose 142 H Calcium 9.1 Troponin T < 0.010 < 0.010 09/15/17 05:16 WBC RBC Hgb Hct MCV MCH MCHC RDW Plt Count Lymph % (Auto) [place] % (Auto) Eos % (Auto) Baso % (Auto) Lymph # [place] # Eos # Baso # Seg Neutrophils % Seg Neutrophils # Sodium Potassium Chloride Carbon Dioxide Anion Gap BUN Creatinine Estimated GFR BUN/Creatinine Ratio Glucose Calcium Troponin T < 0.010 - Radiology Data Radiology results: report reviewed (no acute intracranial process no change from prior) interpreted by me: Chest x-ray is consistent with COPD and chronic changes Critical care attestation.: If time is entered above; I have spent that time in minutes in the direct care of this critically ill patient, excluding procedure time. ED Disposition Clinical Impression: Uncontrolled hypertension Cephalalgia Qualifiers: Headache type: unspecified Headache chronicity pattern: acute headache Intractability: not intractable Qualified Code(s): R51 - Headache Disposition: DC-01 TO HOME OR SELFCARE Is pt being admited?: No Does the pt Need Aspirin: No Condition: Stable Instructions: Hypertension (ED) Additional Instructions: Return any acute change or problem. Be certain to take her blood pressure medicine. Follow-up with her primary care provider. Prescriptions: amLODIPine [Norvasc] 5 mg PO DAILY #30 tab Hydralazine HCl 50 mg PO BID #60 tablet Referrals: PRIMARY CARE [Primary Care Provider] - 3-5 Days Time of Disposition: 09:55
--- NOTE | 2017-09-15 09:45 | Cat Scan Report ---
CT HEAD WITHOUT CONTRAST: HISTORY: Headache. TECHNIQUE: Sequential CT images without contrast. FINDINGS: Images obtained show bilateral prominence of the sulci and ventricles. There are no abnormal intra- or extra-axial blood or fluid collections. There are no focal masses or evidence of mass effect. The cantrell white matter differentiation appears within normal limits. Regions of periventricular decreased attenuation are consistent with microangiopathic ischemic disease. The posterior fossa structures including the fourth ventricle, cerebellum, and brainstem appear normal. IMPRESSION: Evidence of atrophy and microangiopathic ischemic disease. No acute intracranial process noted. No significant change since 11/07/16.
--- NOTE | 2017-09-15 09:48 | XRay Report ---
AP CHEST: HISTORY: Hypertension No comparison. The lungs are hyperinflated but clear. No pleural effusion or pneumothorax. Normal heart and mediastinal structures. No acute bony abnormality. IMPRESSION: Emphysematous changes.
[2017-09-15 10:05] VITALS: BP 143/98
== END 2017-09-15 10:06 | disposition home or self-care (01) ==
LOC: ED 21:42
DX: I10 Essential (primary) hypertension (principal); F17.200 Nicotine dependence, unspecified, uncomplicated
CPT/HCPCS: 36415; 70450; 71045; 80048; 84484; 85025; 93005; 93010; 99285

== ENCOUNTER 2017-09-16 10:33 | Emergency (ER) | payer MEDICARE ==
[2017-09-16 13:30] LABS: Basophils # (Auto) 0.1 K/mm3 (0.0-0.1); Eosinophils # (Auto) 0.1 K/mm3 (0.0-0.4); Eosinophils % (Auto) 0.7 % (0.0-4.3); Hematocrit 42.6 % (35.5-45.6); Hemoglobin 14.6 gm/dl (11.8-15.2); Lymphocytes # (Auto) 2.1 K/mm3 (1.2-5.4); Lymphocytes % (Auto) 21.4 % (13.4-35.0); Mean Corpuscular HGB Conc 34 % (32-34); Mean Corpuscular Hemoglobin 27 pg (28-32); Mean Corpuscular Volume 80 fl (84-94); Monocytes # (Auto) 1.3 K/mm3 (0.0-0.8); Monocytes % (Auto) 12.8 % (0.0-7.3); Platelet Count 274 K/mm3 (140-440); Red Blood Count 5.35 M/mm3 (3.65-5.03); Red Cell Distribution Width 14.8 % (13.2-15.2)
[2017-09-16 14:30] LABS: Calcium 9.8 mg/dL (8.4-10.2)
[2017-09-16 15:55] LABS: Bacteria,Urine 3+ /HPF (Negative); Bilirubin,Urine NEG (Negative); Blood,Urine NEG (Negative); Color,Urine Yellow (Yellow); Mucus,Urine FEW /HPF; Nitrite,Urine NEG (Negative); Sperm,Urine FEW /HPF (NP)
[2017-09-16 15:59] LABS: Amphetamine Screen,Urine PRESUMPTIVE NEGATIVE; Benzodiazepines Screen,Urine PRESUMPTIVE NEGATIVE; Cannabinoid Screen,Urine PRESUMPTIVE NEGATIVE; Cocaine Screen,Urine PRESUMPTIVE NEGATIVE; Methadone Screen,Urine PRESUMPTIVE NEGATIVE; Opiate Screen,Urine PRESUMPTIVE NEGATIVE
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
--- NOTE | 2017-09-17 09:34 | Cat Scan Report ---
CT ABDOMEN PELVIS WITHOUT CONTRAST: HISTORY: Flank pain, UTI. COMPARISON: none. TECHNIQUE: Helical CT in 1.25mm intervals without IV contrast. Sagittal and coronal reconstructions. FINDINGS: Lung bases: Adequately aerated. Mild emphysematous changes are suspected. Liver: Normal. Biliary system: Normal. Pancreas: Normal. Spleen: Normal. Kidneys/ureters/bladder: The kidneys are normal size, position and attenuation. No focal renal lesion or nephrolithiasis. The ureters are normal course and caliber. There is mild trabeculation of the bladder wall. No bladder filling defect. The prostate gland measures 4.7 cm in diameter. Adrenal glands: Normal. Aorta: Normal. Intestines: Within normal limits given no oral contrast was administered. Surgical suture line in the proximal colon is noted. Appendix: Not clearly identified, correlate with surgical history. Pelvic viscera: Normal. Ascites: None. Adenopathy: None. Musculoskeletal: Moderate to severe thoracolumbar spondylosis. No fracture or suspicious bony lesion. IMPRESSION: No acute process is identified in the abdomen or pelvis. Unremarkable kidneys. Mild trabeculation of the bladder wall. Thoracolumbar spondylosis.
--- NOTE | 2017-09-17 09:45 | Emergency Department Report ---
Blank Doc - Documentation Documentation: The patient was seen by the psychiatric team this morning and brought to my attention that the patient has a urinary tract infection and no antibiotics. He also has some renal insufficiency with a creatinine of 1.8. Previous labs show that the patient has had some transient renal insufficiency in the past as well. Also the patient complained of some flank pain. He does not appear in any acute distress but a CT of the abdomen and pelvis was ordered but did not show any nephrolithiasis or any other acute process. I started him on Macrobid 100 mg twice daily for the urinary tract infection.
[2017-09-17] MEDS ORDERED: MACROBID PO SCH (10:00)
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
[2017-09-17 18:56] VITALS: BP 152/89
[2017-09-17] MEDS ORDERED: REMERON PO SCH (22:00)
== END 2017-09-17 19:01 ==
LOC: ED 10:33
DX: F33.2 Major depressive disorder, recurrent severe without psychotic features (principal); I10 Essential (primary) hypertension; E78.00 Pure hypercholesterolemia, unspecified; F17.200 Nicotine dependence, unspecified, uncomplicated
CPT/HCPCS: 36415; 74176; 80048; 80307; 81001; 85025; 99285; G0480; 80320